=== PATIENT | female | born 1935 | race Caucasian/White ===

== ENCOUNTER → 2016-05-04 | Outpatient (REF) | payer MEDICARE, BC ==
[~2016-05-04] MED LIST: COUM2.5T11 PO; EXTR500C4 PO; MUCI600T34 PO; NEUR300C PO; NEXI40CA PO; PERC5TAB6 PO; SIMV20TA2 PO; TRAM50TA2 PO; TYLE325T5 PO
[2016-05-04 11:23] LABS: MEAN CORPUSCULAR HEMOGLOBIN 32.5 pg (27.0-33.0); MEAN CORPUSCULAR HGB CONC 34.4 g/dl (32.0-36.5); MEAN CORPUSCULAR VOLUME 94.4 fl (80.0-96.0); RED CELL DISTRIBUTION WIDTH 12.3 % (11.5-14.5); WHITE BLOOD COUNT 6.3 K/mm3 (4.0-10.0)
[2016-05-04 11:55] LABS: ANION GAP 10 MEQ/L (8-16); BLOOD UREA NITROGEN 9 MG/DL (7-18); CARBON DIOXIDE LEVEL 27 MEQ/L (21-32); CHLORIDE LEVEL 95 MEQ/L (98-107); CHOLESTEROL LEVEL 180 MG/DL (<200); CREATININE FOR GFR 0.62 MG/DL (0.55-1.02); GLOMERULAR FILTRATION RATE > 60.0 (>32); GLUCOSE, FASTING 89 MG/DL (83-110); SODIUM LEVEL 132 MEQ/L (136-145); TRIGLYCERIDES LEVEL 60 MG/DL (<150)
== END ==
LOC: M SFHCCLAY 11:06
PROVIDERS: ATTEND Family Medicine
DX: J44.9 Chronic obstructive pulmonary disease, unspecified (principal); M81.0 Age-related osteoporosis without current pathological fracture; E78.00 Pure hypercholesterolemia, unspecified

== ENCOUNTER → 2017-04-12 | Outpatient (REF) | payer MEDICARE, BC ==
[2017-04-12 16:32] LABS: ANION GAP 9 MEQ/L (8-16); BLOOD UREA NITROGEN 13 MG/DL (7-18); CALCIUM LEVEL 9.1 MG/DL (8.8-10.2); CARBON DIOXIDE LEVEL 27 MEQ/L (21-32); CHLORIDE LEVEL 98 MEQ/L (98-107); CREATININE FOR GFR 0.72 MG/DL (0.55-1.02); GLOMERULAR FILTRATION RATE > 60.0 (>32); GLUCOSE, FASTING 99 MG/DL (83-110); SODIUM LEVEL 134 MEQ/L (136-145)
== END ==
LOC: M SFHCCLAY 10:35
DX: M81.0 Age-related osteoporosis without current pathological fracture (principal)
CPT/HCPCS: 80048

== ENCOUNTER → 2017-05-14 | Outpatient (REF) | payer MEDICARE, BC ==
[2017-05-15 11:56] LABS: BASO % 0.2 % (0.0-1.0); EOS % 0.3 % (0.0-3.0); HEMATOCRIT 37.2 % (36.0-47.0); HEMOGLOBIN 12.8 g/dl (12.0-16.0); IMMATURE GRANULOCYTE % 0.3 % (0-0); LYMPH # 2.1 10^3/uL (1.5-4.5); LYMPH % 22.4 % (24.0-44.0); MEAN CORPUSCULAR HEMOGLOBIN 31.9 pg (27.0-33.0); MEAN CORPUSCULAR HGB CONC 34.4 g/dl (32.0-36.5); MEAN CORPUSCULAR VOLUME 92.8 fl (80.0-96.0); MONO # 1.2 10^3/uL (0.0-0.8); NEUTROPHILS # 6.1 10^3/uL (1.8-7.7); NEUTROPHILS % 63.8 % (36.0-66.0); PLATELET COUNT, AUTOMATED 244 10^3/uL (150-450); RED BLOOD COUNT 4.01 10^6/uL (4.00-5.40); RED CELL DISTRIBUTION WIDTH 12.5 % (11.5-14.5); WHITE BLOOD COUNT 9.6 10^3/uL (4.0-10.0)
[2017-05-15 12:14] LABS: TOTAL 25(OH) VITAMIN D 46.4 NG/ML (30.0-100.0)
[2017-05-15 12:28] LABS: ALBUMIN 4.2 GM/DL (3.2-5.2); ALBUMIN/GLOBULIN RATIO 1.24 (1.00-1.93); ALKALINE PHOSPHATASE 59 U/L (45-117); ALT/SGPT 17 U/L (12-78); ANION GAP 7 MEQ/L (8-16); AST/SGOT 20 U/L (7-37); BILIRUBIN,TOTAL 0.6 MG/DL (0.2-1.0); BLOOD UREA NITROGEN 7 MG/DL (7-18); CALCIUM LEVEL 9.1 MG/DL (8.8-10.2); CARBON DIOXIDE LEVEL 28 MEQ/L (21-32); CHLORIDE LEVEL 96 MEQ/L (98-107); CHOLESTEROL LEVEL 181 MG/DL (<200); CHOLESTEROL RISK RATIO 1.905 (<5); CREATININE FOR GFR 0.52 MG/DL (0.55-1.30); GLOMERULAR FILTRATION RATE > 60.0 (>32); GLUCOSE, FASTING 89 MG/DL (70-100); HDL CHOLESTEROL 95 MG/DL (>40); LDL CHOLESTEROL 71.6 MG/DL (<100); NON-HDL-C 86 MG/DL; SODIUM LEVEL 131 MEQ/L (136-145); THYROID STIMULATING HORMONE 0.918 uIU/ML (0.358-3.740); TOTAL PROTEIN 7.6 GM/DL (6.4-8.2); TRIGLYCERIDES LEVEL 72 MG/DL (<150)
[2017-05-15 12:31] LABS: ERYTHROCYTE SEDIMENTATION RATE 6 mm/hr (0-30)
== END ==
LOC: M SFHCCLAY 15:27
DX: R53.1 Weakness (principal); Z79.899 Other long term (current) drug therapy
CPT/HCPCS: 84443

== ENCOUNTER → 2017-10-03 | Outpatient (CLI) | payer MEDICARE, BC | LOC: M CLY 12:36 | DX: M53.3 Sacrococcygeal disorders, not elsewhere classified (principal); R10.30 Lower abdominal pain, unspecified; Z96.641 Presence of right artificial hip joint | CPT/HCPCS: 73521; G0463 ==

== ENCOUNTER → 2017-10-29 | Outpatient (REF) ==
[2017-10-29 12:46] LABS: HEMOGLOBIN 11.1 g/dl (12.0-15.5); MEAN CORPUSCULAR HEMOGLOBIN 31.5 pg (27.0-33.0); MEAN CORPUSCULAR HGB CONC 34.7 g/dl (32.0-36.5); MEAN CORPUSCULAR VOLUME 90.9 fl (80.0-96.0); PLATELET COUNT, AUTOMATED 423 10^3/uL (150-450); RED BLOOD COUNT 3.52 10^6/uL (4.00-5.40); RED CELL DISTRIBUTION WIDTH 13.6 % (11.5-14.5); WHITE BLOOD COUNT 8.9 10^3/uL (4.0-10.0)
[2017-10-29 12:53] LABS: ANION GAP 10 MEQ/L (8-16); BLOOD UREA NITROGEN 16 MG/DL (7-18); CALCIUM LEVEL 8.6 MG/DL (8.8-10.2); CARBON DIOXIDE LEVEL 25 MEQ/L (21-32); CHLORIDE LEVEL 96 MEQ/L (98-107); CREATININE FOR GFR 0.54 MG/DL (0.55-1.30); GLOMERULAR FILTRATION RATE > 60.0 (>32); GLUCOSE, FASTING 82 MG/DL (70-100); POTASSIUM SERUM 4.6 MEQ/L (3.5-5.1); SODIUM LEVEL 131 MEQ/L (136-145)
== END ==
DX: E87.1 Hypo-osmolality and hyponatremia (principal)

== ENCOUNTER → 2017-11-02 | Outpatient (REF) ==
[2017-11-02 09:49] LABS: HEMATOCRIT 33.3 % (36.0-47.0); HEMOGLOBIN 11.7 g/dl (12.0-15.5); MEAN CORPUSCULAR HEMOGLOBIN 31.5 pg (27.0-33.0); MEAN CORPUSCULAR HGB CONC 35.1 g/dl (32.0-36.5); MEAN CORPUSCULAR VOLUME 89.8 fl (80.0-96.0); PLATELET COUNT, AUTOMATED 458 10^3/uL (150-450); RED BLOOD COUNT 3.71 10^6/uL (4.00-5.40); RED CELL DISTRIBUTION WIDTH 13.3 % (11.5-14.5); WHITE BLOOD COUNT 11.3 10^3/uL (4.0-10.0)
[2017-11-02 10:18] LABS: ANION GAP 11 MEQ/L (8-16); BLOOD UREA NITROGEN 11 MG/DL (7-18); CALCIUM LEVEL 9.4 MG/DL (8.8-10.2); CARBON DIOXIDE LEVEL 26 MEQ/L (21-32); CHLORIDE LEVEL 94 MEQ/L (98-107); CREATININE FOR GFR 0.53 MG/DL (0.55-1.30); GLOMERULAR FILTRATION RATE > 60.0 (>32); GLUCOSE, FASTING 101 MG/DL (70-100); SODIUM LEVEL 131 MEQ/L (136-145)
== END ==
DX: E87.1 Hypo-osmolality and hyponatremia (principal)

== ENCOUNTER → 2017-11-06 | Outpatient (REF) ==
[2017-11-06 11:17] LABS: HEMATOCRIT 35.4 % (36.0-47.0); MEAN CORPUSCULAR HEMOGLOBIN 31.7 pg (27.0-33.0); MEAN CORPUSCULAR HGB CONC 33.9 g/dl (32.0-36.5); MEAN CORPUSCULAR VOLUME 93.7 fl (80.0-96.0); PLATELET COUNT, AUTOMATED 435 10^3/uL (150-450); RED BLOOD COUNT 3.78 10^6/uL (4.00-5.40); RED CELL DISTRIBUTION WIDTH 13.6 % (11.5-14.5); WHITE BLOOD COUNT 8.5 10^3/uL (4.0-10.0)
[2017-11-06 11:47] LABS: ANION GAP 11 MEQ/L (8-16); BLOOD UREA NITROGEN 12 MG/DL (7-18); CARBON DIOXIDE LEVEL 26 MEQ/L (21-32); CHLORIDE LEVEL 94 MEQ/L (98-107); CREATININE FOR GFR 0.63 MG/DL (0.55-1.30); GLOMERULAR FILTRATION RATE > 60.0 (>32); GLUCOSE, FASTING 82 MG/DL (70-100); POTASSIUM SERUM 3.8 MEQ/L (3.5-5.1); SODIUM LEVEL 131 MEQ/L (136-145)
[2017-11-06 11:59] LABS: MAGNESIUM LEVEL 2.2 MG/DL (1.8-2.4)
== END ==
DX: E87.1 Hypo-osmolality and hyponatremia (principal)

== ENCOUNTER → 2017-11-09 | Outpatient (REF) ==
[2017-11-09 11:26] LABS: HEMATOCRIT 33.1 % (36.0-47.0); HEMOGLOBIN 11.2 g/dl (12.0-15.5); MEAN CORPUSCULAR HEMOGLOBIN 31.3 pg (27.0-33.0); MEAN CORPUSCULAR HGB CONC 33.8 g/dl (32.0-36.5); MEAN CORPUSCULAR VOLUME 92.5 fl (80.0-96.0); PLATELET COUNT, AUTOMATED 396 10^3/uL (150-450); RED BLOOD COUNT 3.58 10^6/uL (4.00-5.40); RED CELL DISTRIBUTION WIDTH 13.6 % (11.5-14.5); WHITE BLOOD COUNT 7.6 10^3/uL (4.0-10.0)
[2017-11-09 11:55] LABS: ANION GAP 10 MEQ/L (8-16); BLOOD UREA NITROGEN 16 MG/DL (7-18); CALCIUM LEVEL 8.7 MG/DL (8.8-10.2); CARBON DIOXIDE LEVEL 25 MEQ/L (21-32); CHLORIDE LEVEL 98 MEQ/L (98-107); CREATININE FOR GFR 0.58 MG/DL (0.55-1.30); GLOMERULAR FILTRATION RATE > 60.0 (>32); GLUCOSE, FASTING 132 MG/DL (70-100); SODIUM LEVEL 133 MEQ/L (136-145)
== END ==
DX: E87.1 Hypo-osmolality and hyponatremia (principal)

== ENCOUNTER → 2017-11-29 | Outpatient (REF) | payer MEDICARE, BC ==
[2017-11-29 12:53] LABS: ANION GAP 11 MEQ/L (8-16); BLOOD UREA NITROGEN 7 MG/DL (7-18); CARBON DIOXIDE LEVEL 24 MEQ/L (21-32); CHLORIDE LEVEL 100 MEQ/L (98-107); CREATININE FOR GFR 0.54 MG/DL (0.55-1.30); GLOMERULAR FILTRATION RATE > 60.0 (>32); GLUCOSE, FASTING 99 MG/DL (70-100); SODIUM LEVEL 135 MEQ/L (136-145); THYROID STIMULATING HORMONE 0.866 uIU/ML (0.358-3.740)
== END ==
LOC: M SFHCCLAY 07:08
DX: E87.1 Hypo-osmolality and hyponatremia (principal); R41.0 Disorientation, unspecified
CPT/HCPCS: 84443

== ENCOUNTER → 2018-02-28 | Outpatient (REF) | payer MEDICARE, BC ==
[2018-02-28 12:01] LABS: ANION GAP 5 MEQ/L (8-16); BLOOD UREA NITROGEN 15 MG/DL (7-18); CALCIUM LEVEL 9.6 MG/DL (8.8-10.2); CARBON DIOXIDE LEVEL 30 MEQ/L (21-32); CHLORIDE LEVEL 98 MEQ/L (98-107); CREATININE FOR GFR 0.72 MG/DL (0.55-1.30); GLOMERULAR FILTRATION RATE > 60.0 (>32); GLUCOSE, FASTING 69 MG/DL (70-100); POTASSIUM SERUM 4.4 MEQ/L (3.5-5.1); SODIUM LEVEL 133 MEQ/L (136-145)
== END ==
LOC: M SFHCCLAY 09:13
DX: E87.1 Hypo-osmolality and hyponatremia (principal)
CPT/HCPCS: 80048

== ENCOUNTER → 2018-05-16 | Outpatient (REF) | payer MEDICARE, BC ==
[~2018-05-16] MED LIST changes: -COUM2.5T11 PO; +COUM2.5T17 PO; -MUCI600T34 PO; +MUCI600T37 PO; +PERC5TAB12 PO; -PERC5TAB6 PO
[2018-05-17 12:28] LABS: BLOOD UREA NITROGEN 19 MG/DL (7-18); CALCIUM LEVEL 9.1 MG/DL (8.8-10.2); CARBON DIOXIDE LEVEL 31 MEQ/L (21-32); CHLORIDE LEVEL 96 MEQ/L (98-107); CREATININE FOR GFR 0.72 MG/DL (0.55-1.30); GLOMERULAR FILTRATION RATE > 60.0 (>32); GLUCOSE, FASTING 86 MG/DL (70-100); POTASSIUM SERUM 4.2 MEQ/L (3.5-5.1); SODIUM LEVEL 133 MEQ/L (136-145)
[2018-05-17 12:39] LABS: FREE T4 0.92 NG/DL (0.76-1.46); THYROID STIMULATING HORMONE 1.13 uIU/ML (0.358-3.740)
== END ==
LOC: M SFHCCLAY 14:47
PROVIDERS: ATTEND Family Medicine
DX: F41.9 Anxiety disorder, unspecified (principal); M81.0 Age-related osteoporosis without current pathological fracture; E87.1 Hypo-osmolality and hyponatremia

== ENCOUNTER → 2018-07-23 | Outpatient (REF) | payer MEDICARE, BC ==
[2018-07-23 17:03] LABS: ALBUMIN 3.9 GM/DL (3.2-5.2); BLOOD UREA NITROGEN 12 MG/DL (7-18); CALCIUM LEVEL 9.1 MG/DL (8.8-10.2); CARBON DIOXIDE LEVEL 27 MEQ/L (21-32); CHLORIDE LEVEL 99 MEQ/L (98-107); CREATININE FOR GFR 0.65 MG/DL (0.55-1.30); GLOMERULAR FILTRATION RATE > 60.0 (>32); GLUCOSE, FASTING 80 MG/DL (70-100); PHOSPHORUS LEVEL 3.1 MG/DL (2.5-4.9); POTASSIUM SERUM 3.9 MEQ/L (3.5-5.1); SODIUM LEVEL 132 MEQ/L (136-145)
== END ==
LOC: M SFHCCLAY 09:34
PROVIDERS: ATTEND Family Medicine
DX: Z86.39 Personal history of other endocrine, nutritional and metabolic disease (principal)

== ENCOUNTER → 2018-07-31 | Outpatient (REF) | payer MEDICARE, BC ==
[~2018-07-31] MED LIST changes: +CALC600T5; +PANT20TA2; +RISP0.253 PO; +SODI1TAB6; +VITA500045
== END ==
LOC: M SFHCCLAY 12:47
PROVIDERS: ATTEND Nurse Practitioner Family
DX: N39.0 Urinary tract infection, site not specified (principal)
CPT/HCPCS: 81002; 87086; G0463

== ENCOUNTER 2018-08-04 10:02 | Emergency (ER) | payer MEDICARE, BC ==
[~2018-08-04] VITALS: Ht 154.9 cm; Wt 50.9 kg
[~2018-08-04 10:02] MED LIST changes: -CALC600T5; -PANT20TA2; -RISP0.253 PO; -SODI1TAB6; -VITA500045
[2018-08-04] MEDS ORDERED: RISP0.253 PO (10:36)
[2018-08-04] MEDS ORDERED: SODI1TAB6 (10:36)
[2018-08-04] MEDS ORDERED: VITA500045 (10:36)
[2018-08-04] MEDS ORDERED: CALC600T5 (10:36)
[2018-08-04] MEDS ORDERED: PANT20TA2 (10:36)
[2018-08-04 10:59] LABS: BASO % 0.1 % (0.0-1.0); EOS # 0.1 10^3/uL (0.0-0.50); EOS % 0.6 % (0.0-3.0); HEMATOCRIT 37.3 % (36.0-47.0); HEMOGLOBIN 13.1 g/dl (12.0-15.5); LYMPH % 20.2 % (24.0-44.0); MEAN CORPUSCULAR HEMOGLOBIN 32.5 pg (27.0-33.0); MEAN CORPUSCULAR HGB CONC 35.1 g/dl (32.0-36.5); MEAN CORPUSCULAR VOLUME 92.6 fl (80.0-96.0); MONO % 10.5 % (0.0-5.0); NEUTROPHILS # 6.6 10^3/uL (1.8-7.7); NEUTROPHILS % 68.2 % (36.0-66.0); PLATELET COUNT, AUTOMATED 255 10^3/uL (150-450); RED BLOOD COUNT 4.03 10^6/uL (4.00-5.40); WHITE BLOOD COUNT 9.7 10^3/uL (4.0-10.0)
--- NOTE | 2018-08-04 11:03 | REP ---
REASON: Syncopal episode. COMPARISON: Two view chest dated 06/08/2015. The technique utilized in obtaining the radiograph has magnified the cardiac silhouette and accentuated the interstitial markings. The examination is limited not only by portable technique but limited by the patient's right hand and arm being strewn across the chest. Markedly limited exam shows no significant change from the prior exam other than technique. Biapical pleuroparenchymal scarring is present along with diffuse fibrotic change. Acute disease superimposed upon chronic change cannot be ruled out. There is no significant change in the appearance of the osseous structures. IMPRESSION: Findings and limitations as described above. Electronically Signed by Adán Koo DO 08/04/2018 02:31 P
[2018-08-04 11:31] LABS: BLOOD UREA NITROGEN 11 MG/DL (7-18); CALCIUM LEVEL 9.4 MG/DL (8.8-10.2); CARBON DIOXIDE LEVEL 29 MEQ/L (21-32); CHLORIDE LEVEL 99 MEQ/L (98-107); CPK CREATINE PHOSPHOKINASE 122 U/L (26-192); CREATININE FOR GFR 0.73 MG/DL (0.55-1.30); GLOMERULAR FILTRATION RATE > 60.0 (>32); GLUCOSE, FASTING 107 MG/DL (70-100); MB/CK RELATIVE INDEX 1.63 (< OR =4); POTASSIUM SERUM 3.7 MEQ/L (3.5-5.1); SODIUM LEVEL 135 MEQ/L (136-145); TROPONIN I < 0.02 NG/ML (< 0.10)
[2018-08-04 12:43] VITALS: BP 143/76
--- NOTE | 2018-08-04 20:59 | ECGEPIP ---
Stationary ECG Study [facility] - ED Test Date: 2018-08-04 Pat Name: ONEIL BUCKLEY Department: Room: - Gender: F English And Reading Instructor: anne : 1935 Requested By: Kali Bedolla Order Number: [id number] Reading MD: Kayla Dave Measurements Intervals [place] Rate: 80 P: 65 CO: 169 QRS: 46 QRSD: 87 T: 62 QT: 363 QTc: 419 Interpretive Statements SINUS RHYTHM SEPTAL MYOCARDIAL INFARCTION, OF INDETERMINATE AGE DECREASED ECTOPY 06/08/15 Electronically Signed On 08-04-2018 20:59:31 EDT by Kayla Dave
--- NOTE | 2018-08-19 11:45 | REP ---
REPEAT DICTATION CT BRAIN WITHOUT CONTRAST: HISTORY: Syncope. Preliminary report was provided at time of examination by Dr. Koo. No comparison study is available. CT FINDINGS: Preliminary digital community arts worker radiograph is unremarkable. Bone window settings demonstrate an intact bony calvarium. The visualized paranasal sinuses are clear. No intraorbital abnormality is seen. Vascular calcification is noted in the distal vertebral and carotid arteries bilaterally. There is diffuse cerebral atrophy. Extensive periventricular white matter low density is seen bilaterally consistent with small vessel atherosclerotic change. There is no evidence of intracranial hemorrhage. No mass, infarct, extra-axial fluid collection or midline shift is seen. IMPRESSION: Diffuse atrophy, vascular calcification, extensive small vessel changes. No acute intracranial abnormality. Electronically Signed by Sim Hannon MD 08/19/2018 02:27 P
== END 2018-08-04 12:44 | disposition home or self-care (01) ==
LOC: M ED 10:02
DX: R55 Syncope and collapse (principal); F03.90 Unspecified dementia, unspecified severity, without behavioral disturbance, psychotic disturbance, mood disturbance, and anxiety; M54.32 Sciatica, left side; K21.9 Gastro-esophageal reflux disease without esophagitis; E78.5 Hyperlipidemia, unspecified; Z79.899 Other long term (current) drug therapy

== ENCOUNTER 2018-09-25 16:19 | Inpatient (IN) | payer MEDICARE, BC ==
[~2018-09-25] VITALS: Ht 154.9 cm; Wt 52.8 kg
[~2018-09-25 16:19] MED LIST changes: +CALC600T5; +PANT20TA2; +RISP0.253 PO; +SODI1TAB6; +VITA500045
[2018-09-25 19:50] VITALS: BP 165/86
[2018-09-25] MEDS: risperiDONE 0.25 MG TAB PO SCH (21:00)
[2018-09-25] MEDS: ACETAMINOPHEN 325 MG TAB PO SCH (21:00)
--- NOTE | 2018-09-25 22:01 | HPE ---
DATE OF ADMISSION: 09/25/2018 PRIMARY CARE PROVIDER: Dr. David Kang CHIEF COMPLAINT: Fall and pelvic fracture. HISTORY OF PRESENT ILLNESS: The patient is an 83-year-old white female transferred from [facility] due to a pelvic fracture secondary to a fall. History is provided by herself, as well as by review of the chart. However, the patient has dementia and she cannot provide any good history. The medical record from [facility], she fell at home and she was sent to the [facility] for evaluation. In the [facility] emergency room she underwent x-ray, which demonstrated that she has a pelvic fracture. The orthopedic service was called. She was transferred here for further evaluation. Otherwise, no other issues. REVIEW OF SYSTEMS: Not available due to dementia. PAST MEDICAL HISTORY: 1. Dementia. 2. Acid reflux. 3. Dyslipidemia. 4. Recurrent urinary tract infection. PAST SURGICAL HISTORY: 1. Hip surgery. 2. Tonsillectomy. SOCIAL HISTORY: Remote tobacco use but quit many years ago. No alcohol abuse. No illicit drug abuse. She lives at home. She is a FULL CODE. ALLERGIES: No known drug allergies. MEDICATIONS: - calcium 600 mg once daily - Protonix 40 mg by mouth daily - risperidone 0.25 mg twice a day - sodium chloride 1 gram daily - Tylenol as needed - vitamin D 2000 units every 2 weeks FAMILY HISTORY: Noncontributory. PHYSICAL EXAMINATION: VITAL SIGNS: Temperature 98, heart rate 70, respirations 14, blood pressure 120/60, oxygen saturation 95% on room air. GENERAL : She is awake, alert, and she is oriented to people and place, not to time. She is not in acute distress. HEENT: Atraumatic. Pupils are equal, round and reactive to light. No jaundice. Extraocular muscles are intact. Ears, nose, throat and mouth normal. NECK: No jugular venous distention (JVD) or bruits. LUNGS: Clear. No wheezing or crackles. HEART: S1, S2. Regular. No murmur. ABDOMEN: Soft. Bowel sounds positive. Nontender. EXTREMITIES: No edema in bilateral lower extremities. NEUROLOGIC: Nonfocal. SKIN: No rashes. PSYCHOLOGICAL: No acute psychosis but demented. X-ray and laboratory studies from outside were reviewed. IMPRESSION: 1. Pelvic fracture due to mechanical fall. 2. History of gastroesophageal reflux disease (GERD). 3. History of chronic obstructive pulmonary disease (COPD). 4. Hyperlipidemia. PLAN: The patient will be admitted to the medical floor. We will continue home medications. We will get physical therapy (PT) and occupational therapy (OT) evaluation to decide if she needs short term rehabilitation or not. Dr. Kang will followup tomorrow. IAN
[2018-09-25] MEDS ORDERED: CALCTAB7 PO (22:02)
[2018-09-25] MEDS ORDERED: RISP0.253 PO (22:02)
[2018-09-25] MEDS ORDERED: PANT-23 PO (22:02)
[2018-09-25] MEDS ORDERED: ACET-907 PO (22:02)
[2018-09-25] MEDS ORDERED: SODI1TAB6 PO (22:02)
[2018-09-25] MEDS ORDERED: VITA1CAP25 PO (22:02)
[2018-09-26 06:37] VITALS: BP 134/77
[2018-09-26 06:38] LABS: BLOOD UREA NITROGEN 8 MG/DL (7-18); CALCIUM LEVEL 8.2 MG/DL (8.8-10.2); CARBON DIOXIDE LEVEL 28 MEQ/L (21-32); CHLORIDE LEVEL 102 MEQ/L (98-107); CREATININE FOR GFR 0.61 MG/DL (0.55-1.30); GLOMERULAR FILTRATION RATE > 60.0 (>32); GLUCOSE, FASTING 96 MG/DL (70-100); POTASSIUM SERUM 3.9 MEQ/L (3.5-5.1); SODIUM LEVEL 135 MEQ/L (136-145)
--- NOTE | 2018-09-26 07:19 | IPNPDOC ---
Subjective Date Seen The patient was seen on 09/26/18. Subjective Chief Complaint/HPI DOes not have any complaints this morning says she has been walking at home. Says she fell down a week ago went to the hospital the day after the fall was checked out and sent home. However at home she continued to have pain ans was walking funny so went back to ED and was found to have the pelvic fracture. No fever or chills, Says now pain is better. Objective Physical Examination General Exam: Positive: Alert, Cooperative, No Acute Distress, Other (pleasantly demented.) Eye Exam: Positive: PERRLA, Conjunctiva & lids normal, EOMI; Negative: Sclera icteric ENT Exam: Positive: Atraumatic, Mucous membr. moist/pink, Pharynx Normal Neck Exam: Positive: Supple; Negative: JVD, thyromegaly Chest Exam: Positive: Clear to auscultation, Normal air movement Heart Exam: Positive: Rate Normal, Regular Rhythm, Normal S1, Normal S2; Negative: Murmurs, Rubs Abdomen Exam: Positive: Normal bowel sounds, Soft; Negative: Tenderness, Hepatospenomegaly Extremity Exam: Positive: Normal pulses; Negative: Clubbing, Cyanosis, Edema Skin Exam: Positive: Nl turgor and temperature; Negative: Rash, Breakdown Neuro Exam: Positive: Normal Speech Psych Exam: Positive: Other (oriented x 2) Assessment /Plan Assessment The patient is an 83-year-old white female with PMH of Dementia, GERD, HLD, COPD, recurrent UTIs was transferred from [facility] due to a pelvic fracture secondary to a fall.The medical record from [facility], she fell at home and she was sent to the [facility] for evaluation. In the [facility] emergency room she underwent x-ray, which demonstrated that she has a pelvic fracture. The orthopedic service was called. She was transferred here for further evaluation. Otherwise, no other issues. Pelvic fracture due to mechanical fall. History of gastroesophageal reflux disease (GERD). History of chronic obstructive pulmonary disease (COPD). Hyperlipidemia. Plan/VTE VTE Prophylaxis Ordered?: Yes VS, I&O, 24H, Fishbone Vital Signs/I&O Vital Signs Date Time Temp Pulse Resp B/P (MAP) Pulse Ox O2 Delivery O2 Flow Rate FiO2 09/25/18 19:50 98.1 87 16 165/86 (112) 98 I&O- Last 24 Hours up to 6 AM 09/26/18 06:00 Intake Total 300 ml Output Total 1650 ml Balance -1350 ml Laboratory Data 24H LABS Laboratory Tests 2 09/26/18 05:32: Anion Gap 5L, Glomerular Filtration Rate > 60.0, Blood Urea Nitrogen 8, Creatinine 0.61, Sodium Level 135L, Potassium Level 3.9, Chloride Level 102, Carbon Dioxide Level 28, Calcium Level 8.2L CBC/BMP Laboratory Tests 09/26/18 05:32 Calcium Level 8.2 L BONITA PENG MD Sep 26, 2018 06:46
[2018-09-26] MEDS: risperiDONE 0.25 MG TAB PO SCH ×2 (08:11→20:20)
[2018-09-26] MEDS: SODIUM CHLORIDE 1 GM TAB PO SCH (08:11)
[2018-09-26] MEDS: ACETAMINOPHEN 325 MG TAB PO SCH ×2 (08:12→20:21)
[2018-09-26] MEDS: PANTOPRAZOLE 40MG TAB (PROTONIX) PO SCH (08:12)
--- NOTE | 2018-09-26 08:43 | CR ---
DATE OF CONSULTATION: 09/25/2018 CHIEF COMPLAINT: I had difficulty mobilizing after left pubic rami fractures. HISTORY OF PRESENT ILLNESS: 83-year-old female apparently had a ground-level trip and fall about week ago. I spoke with Steffen Hurtado last evening from [facility] in regards to this individual. He stated that she was having difficulties mobilizing and wanted to transfer care to our service for rehabilitation. No concerns from the patient. According to her, she had to mobilized after the fall but then experienced some pain as well as some bruising distally afterwards. She is fairly vague historian. On past medical history from the chart reveals chronic obstructive pulmonary disease (COPD), gastroesophageal reflux disease (GERD, hyperlipidemia, syncope and pelvic fracture now. MEDICATIONS: - acetaminophen 325 mg by mouth twice a day - calcium carbonate 600 mg by mouth twice a day - vitamin D50,000 units by mouth every 2 weeks - pantoprazole 40 mg by mouth once daily - risperidone 0.25 mg tablets by mouth twice a day - sodium chloride 1 gram tablet by mouth daily. ALLERGIES: No known drug allergies. PAST SURGICAL HISTORY: Colonoscopy. Right total hip arthroplasty, June 2015. SOCIAL HISTORY: She lives with radha Martinez in her own dwelling. She has a number of children and grandchildren. She is nonsmoker. Previously, she was ambulating with a walker. PHYSICAL EXAMINATION: VITAL SIGNS: Temperature 80.3. Blood pressure 134/77. Pulse rate 88. Respiratory rate 16, 95% on room air. She is alert and times three. She responds appropriately. She is lying supine comfortably in the bed. She is up eating breakfast. She was complaining about a little bit of abdominal fullness. I agree, she is a little bit distended but overall soft. She apparently is getting up to use washroom. Still having bowel movements. LOWER EXTREMITIES: Well perfused. She is able to wiggle her toes, dorsiflex, and plantar flex foot on both sides. She has good pedal pulses. No obvious pain to palpation about her entire lower extremities on either side or in the pelvis. Radiographs are reviewed from [facility]. AP of the pelvis as well as AP lateral of the left hip. This shows a small nondisplaced superior and inferior pubic rami fracture on the left side. There is no obvious acetabular fracture. The right total hip arthroplasty appears well positioned, free of complication, loosening or fracture. Left side of there is no obvious femoral neck fracture. Laboratory examination reveals electrolytes to be normal. Her hemoglobin is not reported here. ASSESSMENT/PLAN: This 83-year-old female with minimally displaced insufficiency fractures of her pelvis with left superior and inferior pubic rami fractures who does appear to be mobilizing somewhat comfortably can be weightbearing as tolerated bilateral lower extremities. I would suggest some form of venous thromboembolism (VTE) prophylaxis for her while she is in hospital with a pelvic fracture. I will leave this up to her hospitalist. I would suggest followup with an orthopaedic surgeon after discharge at the 6-12-week [place] for repeat x-rays to ensure proper healing. We will ensure safety for mobilization and appropriate discharge planning. I will not follow this patient while she is in the hospital unless there is problem then, I would be more than happy to reevaluate.
--- NOTE | 2018-09-26 10:00 | IPNPDOC ---
Subjective Date Seen The patient was seen on 09/26/18. Subjective Chief Complaint/HPI Geraldo pt. She is doing well this morning, woke c/o abd pain, has had a large BM with resolution of her pain. Sitter at bedside. General: Denies: Fatigue Constitutional: Denies: Chills, Fever Pulmonary: Denies: Dyspnea, Cough Cardiovascular: Denies: Chest Pain, Palpitations Gastrointestinal: Denies: Nausea, Vomiting, Abdominal Pain Neurological: Reports: Weakness Psych: Reports: Mood Normal Objective Physical Examination General Exam: Positive: Alert, Cooperative, No Acute Distress, Other (pleasantly demented.) ENT Exam: Positive: Mucous membr. moist/pink Neck Exam: Positive: Supple Chest Exam: Positive: Clear to auscultation, Normal air movement Heart Exam: Positive: Rate Normal, Regular Rhythm, Normal S1, Normal S2; Negative: Murmurs, Rubs Abdomen Exam: Positive: Normal bowel sounds, Soft; Negative: Tenderness, Hepatospenomegaly Extremity Exam: Positive: Normal pulses; Negative: Clubbing, Cyanosis, Edema Skin Exam: Positive: Nl turgor and temperature; Negative: Rash, Breakdown Neuro Exam: Positive: Normal Speech Psych Exam: Positive: Other (oriented x 2); Negative: Memory Intact Assessment /Plan Problems (1) Pelvic fracture Status: Acute Response to Treatment: Stable Discussed With: Nurse, Patient Problem Specific Plan: Monitor Clinically, Repeat Labs Problem Text: Ortho rec conservative mgmt with f/u with Ortho 6-12 weeks post fall. PT ordered. Will add Lovenox. (2) GERD (gastroesophageal reflux disease) Status: Chronic Response to Treatment: Stable Problem Specific Plan: Monitor Clinically (3) Hyperlipidemia Status: Chronic Response to Treatment: Stable Problem Specific Plan: Monitor Clinically Plan/VTE VTE Prophylaxis Ordered?: Yes VS, I&O, 24H, Fishbone Vital Signs/I&O Vital Signs Date Time Temp Pulse Resp B/P (MAP) Pulse Ox O2 Delivery O2 Flow Rate FiO2 09/26/18 06:37 98.3 88 16 134/77 (96) 95 I&O- Last 24 Hours up to 6 AM 09/26/18 06:00 Intake Total 300 ml Output Total 1650 ml Balance -1350 ml Laboratory Data 24H LABS Laboratory Tests 2 09/26/18 05:32: Anion Gap 5L, Glomerular Filtration Rate > 60.0, Blood Urea Nitrogen 8, Creatinine 0.61, Sodium Level 135L, Potassium Level 3.9, Chloride Level 102, Carbon Dioxide Level 28, Calcium Level 8.2L CBC/BMP Laboratory Tests 09/26/18 05:32 Calcium Level 8.2 L SONAM ESCOBAR PA-C Sep 26, 2018 10:00
[2018-09-26] MEDS: ENOXAPARIN 40 MG/0.4 ML SYRINGE (J1650) SC SCH (11:14)
[2018-09-26 14:00] VITALS: BP 134/75
[2018-09-26] MEDS: NORCO, ANEXSIA 5/325MG TABLET (HYDROcodone/ACETAMINOPHEN) PO PRN ×2 (17:05→23:38)
[2018-09-26 20:40] VITALS: BP 143/88
[2018-09-27 05:21] VITALS: BP 158/90
[2018-09-27 05:48] VITALS: BP 155/90
[2018-09-27] MEDS: PANTOPRAZOLE 40MG TAB (PROTONIX) PO SCH (08:31)
[2018-09-27] MEDS: SODIUM CHLORIDE 1 GM TAB PO SCH (08:31)
[2018-09-27] MEDS: risperiDONE 0.25 MG TAB PO SCH ×2 (08:31→20:49)
[2018-09-27] MEDS: ENOXAPARIN 40 MG/0.4 ML SYRINGE (J1650) SC SCH (08:31)
[2018-09-27] MEDS: ACETAMINOPHEN 325 MG TAB PO SCH ×2 (08:31→20:49)
--- NOTE | 2018-09-27 09:40 | IPNPDOC ---
Subjective Date Seen The patient was seen on 09/27/18. Subjective Chief Complaint/HPI Pt this morning without new concerns. She c/o no pain while in bed, increased pain in her R hip and buttock with ambulation. General: Denies: Fatigue Constitutional: Denies: Chills, Fever ENT: Denies: Head Aches Pulmonary: Denies: Dyspnea, Cough Cardiovascular: Denies: Chest Pain, Palpitations Gastrointestinal: Denies: Nausea, Vomiting, Diarrhea Neurological: Denies: Weakness Psych: Reports: Mood Normal Objective Physical Examination General Exam: Positive: Alert, Cooperative, No Acute Distress, Other (pleasantly demented.) ENT Exam: Positive: Mucous membr. moist/pink Neck Exam: Positive: Supple Chest Exam: Positive: Clear to auscultation, Normal air movement Heart Exam: Positive: Rate Normal, Regular Rhythm, Normal S1, Normal S2; Negative: Murmurs, Rubs Abdomen Exam: Positive: Normal bowel sounds, Soft; Negative: Tenderness, Hepatospenomegaly Extremity Exam: Positive: Normal pulses; Negative: Clubbing, Cyanosis, Edema Skin Exam: Positive: Nl turgor and temperature; Negative: Rash, Breakdown Neuro Exam: Positive: Normal Speech Psych Exam: Positive: Other (oriented x 2); Negative: Memory Intact Assessment /Plan Problems (1) Pelvic fracture Status: Acute Response to Treatment: Stable Discussed With: Nurse, Patient Problem Specific Plan: Monitor Clinically, Repeat Labs Problem Text: 09/27 No safe per PT, will d/c home when safe. 09/26 Ortho rec conservative mgmt with f/u with Ortho 6-12 weeks post fall. PT ordered. Will add Lovenox. (2) GERD (gastroesophageal reflux disease) Status: Chronic Response to Treatment: Stable Problem Specific Plan: Monitor Clinically (3) Hyperlipidemia Status: Chronic Response to Treatment: Stable Problem Specific Plan: Monitor Clinically Plan/VTE VTE Prophylaxis Ordered?: Yes VS, I&O, 24H, Fishbone Vital Signs/I&O Vital Signs Date Time Temp Pulse Resp B/P (MAP) Pulse Ox O2 Delivery O2 Flow Rate FiO2 09/27/18 05:21 98.3 110 18 158/90 (112) 93 I&O- Last 24 Hours up to 6 AM 09/27/18 06:00 Intake Total 1320 ml Output Total 1000 ml Balance 320 ml SONAM ESCOBAR PA-C Sep 27, 2018 09:40
[2018-09-27] MEDS ORDERED: DOCUSATE SODIUM 100 MG CAP PO PRN (09:45)
[2018-09-27 15:05] VITALS: BP 154/87
[2018-09-27 22:00] VITALS: BP 153/86
[2018-09-28] MEDS: NORCO, ANEXSIA 5/325MG TABLET (HYDROcodone/ACETAMINOPHEN) PO PRN ×3 (00:38→21:55)
[2018-09-28 06:00] VITALS: BP 156/86
[2018-09-28 07:04] LABS: BASO % 0.2 % (0.0-1.0); EOS # 0.3 10^3/uL (0.0-0.50); EOS % 2.5 % (0.0-3.0); HEMATOCRIT 32.8 % (36.0-47.0); HEMOGLOBIN 11.4 g/dl (12.0-15.5); LYMPH # 2.5 10^3/uL (1.5-4.5); LYMPH % 23.8 % (24.0-44.0); MEAN CORPUSCULAR HEMOGLOBIN 32.2 pg (27.0-33.0); MEAN CORPUSCULAR HGB CONC 34.8 g/dl (32.0-36.5); MEAN CORPUSCULAR VOLUME 92.7 fl (80.0-96.0); MONO # 1.3 10^3/uL (0.0-0.8); MONO % 12.1 % (0.0-5.0); NEUTROPHILS # 6.5 10^3/uL (1.8-7.7); NEUTROPHILS % 60.8 % (36.0-66.0); PLATELET COUNT, AUTOMATED 322 10^3/uL (150-450); RED BLOOD COUNT 3.54 10^6/uL (4.00-5.40); WHITE BLOOD COUNT 10.7 10^3/uL (4.0-10.0)
[2018-09-28 07:18] LABS: ALBUMIN 3.2 GM/DL (3.2-5.2); ALT/SGPT 18 U/L (12-78); BILIRUBIN,TOTAL 0.2 MG/DL (0.2-1.0); BLOOD UREA NITROGEN 10 MG/DL (7-18); CALCIUM LEVEL 8.2 MG/DL (8.8-10.2); CARBON DIOXIDE LEVEL 27 MEQ/L (21-32); CHLORIDE LEVEL 98 MEQ/L (98-107); CREATININE FOR GFR 0.57 MG/DL (0.55-1.30); GLOMERULAR FILTRATION RATE > 60.0 (>32); GLUCOSE, FASTING 102 MG/DL (70-100); POTASSIUM SERUM 3.9 MEQ/L (3.5-5.1); SODIUM LEVEL 131 MEQ/L (136-145); TOTAL PROTEIN 6.8 GM/DL (6.4-8.2)
[2018-09-28] MEDS: risperiDONE 0.25 MG TAB PO SCH ×2 (08:31→20:35)
[2018-09-28] MEDS: PANTOPRAZOLE 40MG TAB (PROTONIX) PO SCH (08:31)
[2018-09-28] MEDS: SODIUM CHLORIDE 1 GM TAB PO SCH ×2 (08:31→20:35)
[2018-09-28] MEDS: ACETAMINOPHEN 325 MG TAB PO SCH ×2 (08:31→20:35)
[2018-09-28] MEDS: ENOXAPARIN 40 MG/0.4 ML SYRINGE (J1650) SC SCH (08:36)
--- NOTE | 2018-09-28 12:36 | IPNPDOC ---
Subjective Date Seen The patient was seen on 09/28/18. Subjective Chief Complaint/HPI everyone is telling me what to do Constitutional: Denies: Chills ENT: Denies: Head Aches Pulmonary: Denies: Dyspnea, Cough Cardiovascular: Denies: Chest Pain, Palpitations Gastrointestinal: Denies: Nausea, Abdominal Pain Hematologic: Denies: Bruising Neurological: Denies: Weakness, Numbness, Change in speech Objective Physical Examination General Exam: Positive: Alert, Cooperative, No Acute Distress, Other (pleasantly demented.) Eye Exam: Positive: PERRLA; Negative: Sclera icteric ENT Exam: Positive: Mucous membr. moist/pink Neck Exam: Positive: Supple Chest Exam: Positive: Clear to auscultation, Normal air movement Heart Exam: Positive: Rate Normal, Regular Rhythm, Normal S1, Normal S2; Negative: Murmurs, Rubs Abdomen Exam: Positive: Normal bowel sounds, Soft; Negative: Tenderness, Hepatospenomegaly Extremity Exam: Positive: Normal pulses, Other (observed to ambulate with walker; no significant pain limitations); Negative: Clubbing, Cyanosis, Edema Skin Exam: Positive: Nl turgor and temperature; Negative: Rash, Breakdown Neuro Exam: Positive: Normal Speech Psych Exam: Positive: Other (oriented x 2); Negative: Memory Intact Assessment /Plan Problems (1) Pelvic fracture Status: Acute Response to Treatment: Stable Discussed With: Nurse, Patient Problem Specific Plan: Monitor Clinically, Repeat Labs Problem Text: 09/28 She has had multiple falls at home. If going home may need additional help at home and use of bed/chair alarms. Placement is an option. 09/27 No safe per PT, will d/c home when safe. 09/26 Ortho rec conservative mgmt with f/u with Ortho 6-12 weeks post fall. PT ordered. Will add Lovenox. (2) GERD (gastroesophageal reflux disease) Status: Chronic Response to Treatment: Stable Problem Specific Plan: Monitor Clinically (3) Hyperlipidemia Status: Chronic Response to Treatment: Stable Problem Specific Plan: Monitor Clinically (4) Hypertension Status: Chronic Response to Treatment: Stable Problem Text: Monitor, if sustained above 140 (seems to be systolic only) then add amlodipine. (5) Hyponatremia Status: Chronic Response to Treatment: Stable Problem Text: low sodium has been chronic problem. managed with salt pills at home. sodium lower today than on admission. will resum NaCl tab, monitor Plan/VTE VTE Prophylaxis Ordered?: Yes VS, I&O, [facility]H, [facility] Vital Signs/I&O Vital Signs Date Time Temp Pulse Resp B/P (MAP) Pulse Ox O2 Delivery O2 Flow Rate FiO2 09/28/18 06:00 98.1 91 20 156/86 (109) 98 I&O- Last 24 Hours up to 6 AM 09/28/18 06:00 Intake Total 1260 ml Output Total 950 ml Balance 310 ml Laboratory Data 24H LABS Laboratory Tests 2 09/28/18 06:08: Immature Granulocyte % (Auto) 0.6, White Blood Count 10.7H, Red Blood Count 3.54L, Hemoglobin 11.4L, Hematocrit 32.8L, Mean Corpuscular Volume 92.7, Mean Corpuscular Hemoglobin 32.2, Mean Corpuscular Hemoglobin Concent 34.8, Red Cell Distribution Width 13.5, Platelet Count 322, Neutrophils (%) (Auto) 60.8, Lymphocytes (%) (Auto) 23.8L, Monocytes (%) (Auto) 12.1H, Eosinophils (%) (Auto) 2.5, Basophils (%) (Auto) 0.2, Neutrophils # (Auto) 6.5, Lymphocytes # (Auto) 2.5, Monocytes # (Auto) 1.3H, Eosinophils # (Auto) 0.3, Basophils # (Auto) 0.0, Nucleated Red Blood Cells % (auto) 0.0, Anion Gap 6L, Glomerular Filtration Rate > 60.0, Blood Urea Nitrogen 10, Creatinine 0.57, Sodium Level 131L, Potassium Level 3.9, Chloride Level 98, Carbon Dioxide Level 27, Calcium Level 8.2L, Aspa rtate Amino Transf (AST/SGOT) 19, Alanine Aminotransferase (ALT/SGPT) 18, Alkaline Phosphatase 67, Total Bilirubin 0.2, Total Protein 6.8, Albumin 3.2, Albumin/Globulin Ratio 0.89L CBC/BMP Laboratory Tests 09/28/18 06:08 Red Blood Count 3.54 L, Mean Corpuscular Volume 92.7, Mean Corpuscular Hemoglobin 32.2, Mean Corpuscular Hemoglobin Concent 34.8, Red Cell Distribution Width 13.5, Neutrophils (%) (Auto) 60.8, Lymphocytes (%) (Auto) 23.8 L, Monocytes (%) (Auto) 12.1 H, Eosinophils (%) (Auto) 2.5, Basophils (%) (Auto) 0.2, Neutrophils # (Auto) 6.5, Lymphocytes # (Auto) 2.5, Monocytes # (Auto) 1.3 H, Eosinophils # (Auto) 0.3, Basophils # (Auto) 0.0, Calcium Level 8.2 L, A spartate Amino Transf (AST/SGOT) 19, Alanine Aminotransferase (ALT/SGPT) 18, Alkaline Phosphatase 67, Total Bilirubin 0.2, Total Protein 6.8, Albumin 3.2 David Kang MD Sep 28, 2018 12:36
[2018-09-28 14:11] VITALS: BP 117/59
[2018-09-28 22:00] VITALS: BP 127/61
[2018-09-29 06:00] VITALS: BP 146/65
[2018-09-29 06:22] LABS: HEMATOCRIT 32.9 % (36.0-47.0); HEMOGLOBIN 11.4 g/dl (12.0-15.5); MEAN CORPUSCULAR HEMOGLOBIN 31.5 pg (27.0-33.0); MEAN CORPUSCULAR HGB CONC 34.7 g/dl (32.0-36.5); MEAN CORPUSCULAR VOLUME 90.9 fl (80.0-96.0); PLATELET COUNT, AUTOMATED 331 10^3/uL (150-450); RED BLOOD COUNT 3.62 10^6/uL (4.00-5.40); WHITE BLOOD COUNT 8.8 10^3/uL (4.0-10.0)
[2018-09-29 06:41] LABS: BLOOD UREA NITROGEN 10 MG/DL (7-18); CALCIUM LEVEL 8.5 MG/DL (8.8-10.2); CARBON DIOXIDE LEVEL 26 MEQ/L (21-32); CHLORIDE LEVEL 102 MEQ/L (98-107); CREATININE FOR GFR 0.64 MG/DL (0.55-1.30); GLOMERULAR FILTRATION RATE > 60.0 (>32); GLUCOSE, FASTING 95 MG/DL (70-100); POTASSIUM SERUM 4.1 MEQ/L (3.5-5.1); SODIUM LEVEL 135 MEQ/L (136-145)
[2018-09-29] MEDS: ACETAMINOPHEN 325 MG TAB PO SCH ×2 (08:29→20:27)
[2018-09-29] MEDS: SODIUM CHLORIDE 1 GM TAB PO SCH ×2 (08:29→20:27)
[2018-09-29] MEDS: risperiDONE 0.25 MG TAB PO SCH (08:29)
[2018-09-29] MEDS: PANTOPRAZOLE 40MG TAB (PROTONIX) PO SCH (08:30)
[2018-09-29] MEDS: ENOXAPARIN 40 MG/0.4 ML SYRINGE (J1650) SC SCH (08:30)
[2018-09-29 14:00] VITALS: BP 133/67
[2018-09-29] MEDS: risperiDONE 0.5 MG TAB PO SCH (20:28)
[2018-09-29 22:00] VITALS: BP 144/76
[2018-09-30] MEDS: NORCO, ANEXSIA 5/325MG TABLET (HYDROcodone/ACETAMINOPHEN) PO PRN ×3 (01:40→17:56)
[2018-09-30 05:17] VITALS: BP 140/82
[2018-09-30 06:00] VITALS: BP 140/82
[2018-09-30] MEDS: SODIUM CHLORIDE 1 GM TAB PO SCH ×2 (08:16→21:23)
[2018-09-30] MEDS: PANTOPRAZOLE 40MG TAB (PROTONIX) PO SCH (08:17)
[2018-09-30] MEDS: risperiDONE 0.25 MG TAB PO SCH (08:17)
[2018-09-30] MEDS: ACETAMINOPHEN 325 MG TAB PO SCH ×2 (08:18→21:24)
[2018-09-30] MEDS: ENOXAPARIN 40 MG/0.4 ML SYRINGE (J1650) SC SCH (08:19)
--- NOTE | 2018-09-30 11:12 | DS.PDOC ---
Discharge Summary General Date of Admission Sep 25, 2018 at 19:30 Date of Discharge when passes PT. Primary Care Physician: David Kang MD Specialist/Consultants Involve: ALISHA CASTRO MD Discharge Summary PROCEDURES PERFORMED DURING STAY: None ADMITTING DIAGNOSES: 1. pelvic fracture 2. dementia DISCHARGE DIAGNOSES: 1. pelvic fracture 2. dementia COMPLICATIONS/CHIEF COMPLAINT: Pelvic Fracture. HISTORY OF PRESENT ILLNESS:: The patient is an 83-year-old white female transferred from [facility] due to a pelvic fracture secondary to a fall. In the [facility] emergency room she underwent x-ray, which demonstrated that she has a pelvic fracture. The orthopedic service was called. HOSPITAL COURSE: Consulted by Ortho: non-surgical. Recommended PT. Apperas to have poor safety awareness due to dementia. DISCHARGE MEDICATIONS: Please see below. ALLERGIES: Please see below. PHYSICAL EXAMINATION ON DISCHARGE: VITAL SIGNS: Please see below. GENERAL: NAD CARDIOVASCULAR EXAMINATION: RRR S1S2 RESPIRATORY EXAMINATION: CTA B ABDOMINAL EXAMINATION: soft, NT SKIN: no rash LABORATORY DATA: Please see below. IMAGING: NONE PROGNOSIS: fair ACTIVITY: per PT recommendations DIET: as pinky DISCHARGE PLAN: will be provided upon DC. DISPOSITION: . DISCHARGE INSTRUCTIONS: 1. . ITEMS TO FOLLOWUP ON ON OUTPATIENT: 1. . DISCHARGE CONDITION: [Stable]. TIME SPENT ON DISCHARGE: Greater than minutes. Vital Signs/I&Os Vital Signs Date Time Temp Pulse Resp B/P (MAP) Pulse Ox O2 Delivery O2 Flow Rate FiO2 09/30/18 08:18 18 09/30/18 06:00 98.0 92 140/82 (101) 95 I&O- Last 24 Hours up to 6 AM 09/30/18 06:00 Intake Total 1080 ml Output Total 600 ml Balance 480 ml Discharge Medications Scheduled Acetaminophen (Tylenol) 325 Mg Tablet, 325 MG PO BID, (Reported) Calcium Carbonate (Calcium) 600 Mg Tablet, 600 MG PO BID, (Reported) Cholecalciferol (Vitamin D3) (Vitamin D3) 50,000 Unit Capsule, 50,000 UNIT PO Q2WK, (Reported) EVERY OTHER ROMELIA Pantoprazole Sodium (Pantoprazole Sodium) 40 Mg Tablet.dr, 40 MG PO DAILY, (Reported) Risperidone (Risperidone) 0.25 Mg Tablet, 0.25 MG PO BID, (Reported) Sodium Chloride (Sodium Chloride) 1 Gm Tablet, 1 GM PO DAILY, (Reported) Allergies Coded Allergies: No Known Allergies (Unverified , 08/04/18) Sis Garcia [facility] Sep 30, 2018 11:12
--- NOTE | 2018-09-30 11:48 | DSES ---
DATE OF ADMISSION: 09/25/2018 DATE OF DISCHARGE: _to SNF level 09/29/18 REASON FOR ADMISSION: The patient admitted after a fall at home. Admitted on 09/25/[address] Sawant. She had fallen at home. She has a history of previous falls resulting in pelvic fracture. She fell again this time, and it was thought that she had a new pelvic fracture related to mechanical fall. She tripped over a rug apparently at home. She has had a history of multiple falls at home despite efforts with using a walker and help with outpatient physical therapy. She continues to fall. Behavior at home related to her chronic dementia, thought to be Alzheimer's type, was so difficult in terms of having her be safe that family requested a more prescribed Risperdal 0.25-0.5 mg daily. Despite this, she continued to get up and wander around the house at night and would become obstreperous, combative with her elderly who is in somewhat better physical condition but in no way is able to adequately cope with her when she becomes challenging. She does have history of severe gastroesophageal reflux disease that was complicated by sufficient aspiration to trigger bronchospasm. This had been resolved by use of antireflux regimen, Protonix. The patient was admitted, seen in consultation by Dr. Hermelindo Fields of the orthopedic service, who felt that protected ambulation and pain control were all that she required. She remained on deep venous thrombosis (DVT) prophylaxis with Lovenox 40 mg subcutaneous daily. Progressive physical therapy (PT) was felt to be unsafe for home discharge, safe only to be discharged to rehabilitation facility. At this time, the family has not yet decided whether they can provide sufficient resources at home to keep her safe, and in any case, she has not met physical therapy goals for safe discharge. At this point, she will be moved to [facility]entiary facility/alternate level of care (ALC) status until placement can be sufficiently sorted out. A reasonable option would be an attempted short-term rehabilitation at [facility] or [facility] versus long-term placement. from the [facility], who has been working with the family and will continue to do so. DISCHARGE DIAGNOSIS: Fracture involving left superior and inferior pubic ramus fractures secondary to fall, history of right total hip, dementia Alzheimer's type, history of hypertension, gastroesophageal reflux disease (GERD), history of bronchospasm associated with GERD, dementia limiting ability to facilitate safe care at home. MTDD
[2018-09-30] MEDS: risperiDONE 0.5 MG TAB PO SCH (21:23)
[2018-09-30 21:34] VITALS: BP 144/75
[2018-10-01] MEDS: NORCO, ANEXSIA 5/325MG TABLET (HYDROcodone/ACETAMINOPHEN) PO PRN (05:47)
[2018-10-01 07:15] VITALS: BP 149/74
[2018-10-01] MEDS: PANTOPRAZOLE 40MG TAB (PROTONIX) PO SCH (09:29)
[2018-10-01] MEDS: SODIUM CHLORIDE 1 GM TAB PO SCH ×2 (09:29→21:31)
[2018-10-01] MEDS: risperiDONE 0.25 MG TAB PO SCH (09:29)
[2018-10-01] MEDS: ACETAMINOPHEN 325 MG TAB PO SCH ×2 (09:30→21:31)
[2018-10-01] MEDS: ENOXAPARIN 40 MG/0.4 ML SYRINGE (J1650) SC SCH (09:31)
[2018-10-01] MEDS: risperiDONE 0.5 MG TAB PO SCH (21:31)
[2018-10-01 22:00] VITALS: BP 154/84
[2018-10-02] MEDS: NORCO, ANEXSIA 5/325MG TABLET (HYDROcodone/ACETAMINOPHEN) PO PRN ×2 (05:03→20:37)
[2018-10-02] MEDS: SENNA 8.6 MG TAB (SENOKOT) PO PRN (05:36)
[2018-10-02 06:00] VITALS: BP 140/79
[2018-10-02 07:31] LABS: HEMATOCRIT 33.6 % (36.0-47.0); HEMOGLOBIN 11.4 g/dl (12.0-15.5); MEAN CORPUSCULAR HEMOGLOBIN 31.7 pg (27.0-33.0); MEAN CORPUSCULAR HGB CONC 33.9 g/dl (32.0-36.5); MEAN CORPUSCULAR VOLUME 93.3 fl (80.0-96.0); PLATELET COUNT, AUTOMATED 341 10^3/uL (150-450); WHITE BLOOD COUNT 9.4 10^3/uL (4.0-10.0)
[2018-10-02 07:53] LABS: BLOOD UREA NITROGEN 11 MG/DL (7-18); CALCIUM LEVEL 8.6 MG/DL (8.8-10.2); CARBON DIOXIDE LEVEL 26 MEQ/L (21-32); CHLORIDE LEVEL 100 MEQ/L (98-107); CREATININE FOR GFR 0.68 MG/DL (0.55-1.30); GLOMERULAR FILTRATION RATE > 60.0 (>32); GLUCOSE, FASTING 88 MG/DL (70-100); SODIUM LEVEL 131 MEQ/L (136-145)
[2018-10-02] MEDS: SODIUM CHLORIDE 1 GM TAB PO SCH ×2 (11:24→20:36)
[2018-10-02] MEDS: risperiDONE 0.25 MG TAB PO SCH (11:25)
[2018-10-02] MEDS: PANTOPRAZOLE 40MG TAB (PROTONIX) PO SCH (11:25)
[2018-10-02] MEDS: ACETAMINOPHEN 325 MG TAB PO SCH ×2 (11:26→20:36)
[2018-10-02] MEDS: ENOXAPARIN 40 MG/0.4 ML SYRINGE (J1650) SC SCH (11:27)
[2018-10-02] MEDS: risperiDONE 0.5 MG TAB PO SCH (20:36)
[2018-10-03 05:56] VITALS: BP 158/86
[2018-10-03 06:00] VITALS: BP 158/86
[2018-10-03] MEDS: NORCO, ANEXSIA 5/325MG TABLET (HYDROcodone/ACETAMINOPHEN) PO PRN ×2 (06:15→16:55)
[2018-10-03] MEDS: SODIUM CHLORIDE 1 GM TAB PO SCH ×2 (08:24→20:52)
[2018-10-03] MEDS: ENOXAPARIN 40 MG/0.4 ML SYRINGE (J1650) SC SCH (08:25)
[2018-10-03] MEDS: ACETAMINOPHEN 325 MG TAB PO SCH ×2 (08:25→20:51)
[2018-10-03] MEDS: PANTOPRAZOLE 40MG TAB (PROTONIX) PO SCH (08:25)
[2018-10-03] MEDS: risperiDONE 0.25 MG TAB PO SCH (10:55)
[2018-10-03 20:20] VITALS: BP 122/66
[2018-10-03] MEDS: risperiDONE 0.5 MG TAB PO SCH (20:51)
[2018-10-03 22:00] VITALS: BP 122/66
[2018-10-04] MEDS: NORCO, ANEXSIA 5/325MG TABLET (HYDROcodone/ACETAMINOPHEN) PO PRN ×2 (01:06→05:43)
[2018-10-04 06:00] VITALS: BP 124/65
[2018-10-04] MEDS: ENOXAPARIN 40 MG/0.4 ML SYRINGE (J1650) SC SCH (08:40)
[2018-10-04] MEDS: SODIUM CHLORIDE 1 GM TAB PO SCH ×2 (08:40→20:51)
[2018-10-04] MEDS: ACETAMINOPHEN 325 MG TAB PO SCH ×2 (08:40→20:51)
[2018-10-04] MEDS: risperiDONE 0.25 MG TAB PO SCH (08:40)
[2018-10-04] MEDS: PANTOPRAZOLE 40MG TAB (PROTONIX) PO SCH (08:40)
[2018-10-04] MEDS: risperiDONE 0.5 MG TAB PO SCH (20:51)
[2018-10-05] MEDS: NORCO, ANEXSIA 5/325MG TABLET (HYDROcodone/ACETAMINOPHEN) PO PRN (02:13)
[2018-10-05 06:00] VITALS: BP 134/77
[2018-10-05 07:02] LABS: HEMATOCRIT 34.8 % (36.0-47.0); HEMOGLOBIN 11.8 g/dl (12.0-15.5); MEAN CORPUSCULAR HEMOGLOBIN 32.3 pg (27.0-33.0); MEAN CORPUSCULAR HGB CONC 33.9 g/dl (32.0-36.5); MEAN CORPUSCULAR VOLUME 95.3 fl (80.0-96.0); PLATELET COUNT, AUTOMATED 324 10^3/uL (150-450); RED BLOOD COUNT 3.65 10^6/uL (4.00-5.40); WHITE BLOOD COUNT 8.6 10^3/uL (4.0-10.0)
[2018-10-05 07:16] LABS: BLOOD UREA NITROGEN 16 MG/DL (7-18); CALCIUM LEVEL 8.4 MG/DL (8.8-10.2); CARBON DIOXIDE LEVEL 20 MEQ/L (21-32); CHLORIDE LEVEL 103 MEQ/L (98-107); CREATININE FOR GFR 0.63 MG/DL (0.55-1.30); GLOMERULAR FILTRATION RATE > 60.0 (>32); GLUCOSE, FASTING 78 MG/DL (70-100); POTASSIUM SERUM 4.3 MEQ/L (3.5-5.1); SODIUM LEVEL 132 MEQ/L (136-145)
[2018-10-05] MEDS: PANTOPRAZOLE 40MG TAB (PROTONIX) PO SCH (09:15)
[2018-10-05] MEDS: SODIUM CHLORIDE 1 GM TAB PO SCH ×2 (09:15→21:14)
[2018-10-05] MEDS: ACETAMINOPHEN 325 MG TAB PO SCH ×2 (09:17→21:15)
[2018-10-05] MEDS: risperiDONE 0.25 MG TAB PO SCH (09:17)
[2018-10-05] MEDS: ENOXAPARIN 40 MG/0.4 ML SYRINGE (J1650) SC SCH (09:17)
[2018-10-05] MEDS: risperiDONE 0.5 MG TAB PO SCH (21:15)
[2018-10-05] MEDS: SENNA 8.6 MG TAB (SENOKOT) PO PRN (23:24)
[2018-10-06 06:00] VITALS: BP 118/57
[2018-10-06] MEDS: NORCO, ANEXSIA 5/325MG TABLET (HYDROcodone/ACETAMINOPHEN) PO PRN ×4 (09:46→23:04)
[2018-10-06] MEDS: ACETAMINOPHEN 325 MG TAB PO SCH ×2 (09:47→21:27)
[2018-10-06] MEDS: PANTOPRAZOLE 40MG TAB (PROTONIX) PO SCH (09:47)
[2018-10-06] MEDS: SODIUM CHLORIDE 1 GM TAB PO SCH ×2 (09:47→21:27)
[2018-10-06] MEDS: risperiDONE 0.25 MG TAB PO SCH (09:47)
[2018-10-06] MEDS: ENOXAPARIN 40 MG/0.4 ML SYRINGE (J1650) SC SCH (09:48)
[2018-10-06] MEDS: risperiDONE 0.5 MG TAB PO SCH (21:27)
[2018-10-07 06:00] VITALS: BP 136/74
[2018-10-07] MEDS: risperiDONE 0.25 MG TAB PO SCH (08:20)
[2018-10-07] MEDS: ACETAMINOPHEN 325 MG TAB PO SCH ×2 (08:20→20:35)
[2018-10-07] MEDS: PANTOPRAZOLE 40MG TAB (PROTONIX) PO SCH (08:20)
[2018-10-07] MEDS: SODIUM CHLORIDE 1 GM TAB PO SCH ×2 (08:20→20:35)
[2018-10-07] MEDS: NORCO, ANEXSIA 5/325MG TABLET (HYDROcodone/ACETAMINOPHEN) PO PRN ×3 (08:20→23:21)
[2018-10-07] MEDS: ENOXAPARIN 40 MG/0.4 ML SYRINGE (J1650) SC SCH (08:21)
--- NOTE | 2018-10-07 11:09 | IPNPDOC ---
Subjective Date Seen The patient was seen on 10/07/18. Subjective Chief Complaint/HPI pelvic fracture Events since last encounter unchanged Constitutional: Denies: Chills, Fever, Malaise, Night Sweats, Weakness, Fatigue, Weight Loss, Lethargy, Other Cardiovascular: Denies: Chest Pain, Palpitations, Orthopnea, Paroxysmal Noc. Dyspnea, Edema, Lt Headedness, Other Symptoms Gastrointestinal: Denies: Nausea, Vomiting, Abdominal Pain, Diarrhea, Constipation, Melena, Hematochezia, Other Symptoms Genitourinary: Denies: Dysuria, Frequency, Incontinence, Hematuria, Retention, Other Symptoms Objective Physical Examination General Exam: Positive: Alert, Cooperative, No Acute Distress, Other (pleasantly demented.) Eye Exam: Positive: PERRLA; Negative: Sclera icteric ENT Exam: Positive: Mucous membr. moist/pink Neck Exam: Positive: Supple Chest Exam: Positive: Clear to auscultation, Normal air movement Heart Exam: Positive: Rate Normal, Regular Rhythm, Normal S1, Normal S2; Negative: Murmurs, Rubs Abdomen Exam: Positive: Normal bowel sounds, Soft; Negative: Tenderness, Hepatospenomegaly Extremity Exam: Positive: Normal pulses, Other (observed to ambulate with walker; no significant pain limitations); Negative: Clubbing, Cyanosis, Edema Skin Exam: Positive: Nl turgor and temperature; Negative: Rash, Breakdown Neuro Exam: Positive: Normal Speech Psych Exam: Positive: Other (oriented x 2); Negative: Memory Intact Assessment /Plan Problems (1) Pelvic fracture Status: Acute Response to Treatment: Stable Discussed With: Nurse, Patient Problem Specific Plan: Monitor Clinically, Repeat Labs Problem Text: 10/07/18: Pain appears to be well controlled. 09/28 She has had multiple falls at home. If going home may need additional help at home and use of bed/chair alarms. Placement is an option. 09/27 No safe per PT, will d/c home when safe. 09/26 Ortho rec conservative mgmt with f/u with Ortho 6-12 weeks post fall. PT ordered. Will add Lovenox. (2) GERD (gastroesophageal reflux disease) Status: Chronic Response to Treatment: Stable Problem Specific Plan: Monitor Clinically (3) Hyperlipidemia Status: Chronic Response to Treatment: Stable Problem Specific Plan: Monitor Clinically (4) Hypertension Status: Chronic Response to Treatment: Stable Problem Text: Monitor, if sustained above 140 (seems to be systolic only) then add amlodipine. (5) Hyponatremia Status: Chronic Response to Treatment: Stable Problem Text: low sodium has been chronic problem. managed with salt pills at home. sodium lower today than on admission. will resum NaCl tab, monitor Plan/VTE VTE Prophylaxis Ordered?: Yes VS, I&O, 24H, Fishbone Vital Signs/I&O Vital Signs Date Time Temp Pulse Resp B/P (MAP) Pulse Ox O2 Delivery O2 Flow Rate FiO2 10/07/18 08:50 18 10/07/18 06:00 98.5 95 136/74 (94) 97 I&O- Last 24 Hours up to 6 AM 10/07/18 06:00 Intake Total 1320 ml Balance 1320 ml Sis Garcia REGULATORY AFFAIRS MANAGER Oct 07, 2018 11:09
[2018-10-07] MEDS: risperiDONE 0.5 MG TAB PO SCH (20:34)
[2018-10-08 06:00] VITALS: BP 145/86
[2018-10-08 06:53] LABS: HEMATOCRIT 30.9 % (36.0-47.0); HEMOGLOBIN 10.4 g/dl (12.0-15.5); MEAN CORPUSCULAR HEMOGLOBIN 30.9 pg (27.0-33.0); MEAN CORPUSCULAR HGB CONC 33.7 g/dl (32.0-36.5); MEAN CORPUSCULAR VOLUME 91.7 fl (80.0-96.0); PLATELET COUNT, AUTOMATED 324 10^3/uL (150-450); RED BLOOD COUNT 3.37 10^6/uL (4.00-5.40); WHITE BLOOD COUNT 7.1 10^3/uL (4.0-10.0)
[2018-10-08] MEDS: SODIUM CHLORIDE 1 GM TAB PO SCH (08:39)
[2018-10-08] MEDS: ENOXAPARIN 40 MG/0.4 ML SYRINGE (J1650) SC SCH (08:40)
[2018-10-08] MEDS: PANTOPRAZOLE 40MG TAB (PROTONIX) PO SCH (08:40)
[2018-10-08] MEDS: risperiDONE 0.25 MG TAB PO SCH (08:40)
[2018-10-08] MEDS: ACETAMINOPHEN 325 MG TAB PO SCH (08:40)
[2018-10-08] MEDS ORDERED: HYDR-4571 PO (08:48)
[2018-10-08] MEDS ORDERED: RISP0.2516 PO (08:48)
--- NOTE | 2018-10-08 16:27 | DSES ---
DATE OF ADMISSION: 09/25/2018 DATE OF DISCHARGE: 10/08/2018 BRIEF HISTORY AND PHYSICAL: The patient is an 83-year-old patient transferred from [facility] due to a pelvic fracture secondary to a fall. She has underlying dementia and unable to provide a history. Past medical history is significant for dementia, acid reflux, dyslipidemia, recurrent urinary tract infections. Pertinent labs on admission: White count 10.7, hemoglobin 11.4, platelets 322,000. Sodium 135, potassium 3.9, BUN 8, creatinine 0.61, and glucose 96. As an addendum to the snf facility (SNF) summary from 09/30/2018, the patient's course was unremarkable. After that she has been getting some physical therapy and continues to use hydrocodone periodically for pain. She will be going home with 24-hour care with her family. They do not want home care. She will be sent with some hydrocodone as she has been using it here in the hospital. Will defer to her primary care physician weaning this as an outpatient, and other than that her Risperdal dose was adjusted from 0.25 mg twice a day to 0.25 in the morning and 0.5 at bedtime. Per physical therapy note on 10/07/2018, she is demonstrating consistent mobility with supervision and 06/11 care is recommended. The family is aware and they plan to take her home. Discharge diagnoses are unchanged from those at the time of the SNF summary. Medications: - hydrocodone 5/325 1 tablet every 6 hours as needed for pain (maximum daily dose of 4, 20 tablets have been sent) - Risperdal 0.25 mg in the morning and 0.5 mg at bedtime - Tylenol 325 mg twice a day - calcium 600 mg twice a day - vitamin D 50,000 international units twice a week - pantoprazole 40 mg daily - sodium chloride 1 tablet daily Will defer any osteoporosis treatment to Dr. Kang upon followup. Discharge diagnoses again are unchanged.
== END 2018-10-08 11:30 | disposition home or self-care (01) | DRG 543 ==
LOC: M MS5PR 19:30
PROVIDERS: ADMIT General Practice; ATTEND Family Medicine
DX: M84.454A Pathological fracture, pelvis, initial encounter for fracture (principal); E87.1 Hypo-osmolality and hyponatremia; J44.9 Chronic obstructive pulmonary disease, unspecified; G30.9 Alzheimer's disease, unspecified; F02.80 Dementia in other diseases classified elsewhere, unspecified severity, without behavioral disturbance, psychotic disturbance, mood disturbance, and anxiety; K21.9 Gastro-esophageal reflux disease without esophagitis; E78.5 Hyperlipidemia, unspecified; Z79.899 Other long term (current) drug therapy; R29.6 Repeated falls; Z96.641 Presence of right artificial hip joint